=== PATIENT | female | born 1985 | race African-American/Black ===

== ENCOUNTER 2019-03-19 18:20 | Emergency (ER) | payer OTHER ==
[~2019-03-19] VITALS: Ht 162.6 cm; Wt 85.3 kg
[2019-03-19 18:45] VITALS: BP_SYST 126
== END 2019-03-19 19:06 | disposition left against medical advice (07) ==
LOC: SED 18:20
DX: R22.0 Localized swelling, mass and lump, head (principal); T37.0X5A Adverse effect of sulfonamides, initial encounter; Z53.21 Procedure and treatment not carried out due to patient leaving prior to being seen by health care provider; Y92.89 Other specified places as the place of occurrence of the external cause